=== PATIENT | female | born 1970 | race Two or more races ===

== ENCOUNTER → 2022-04-16 07:29 | Outpatient (BNVA) | payer SELFPAY | PROVIDERS: Visit Provider Physician Assistant Medical | DX: Z02.79 Encounter for issue of other medical certificate (principal) ==

== ENCOUNTER 2023-10-01 13:43 | Outpatient (REF) | payer OTHER, SELFPAY ==
[2023-10-01 17:57] LABS: Appearance Urine Clear; Color Urine Yellow; Glucose Urine UA Negative (Negative); Leukocyte Esterase Urine Negative (Negative); Nitrite Urine Negative (Negative); PH 6.5 (5.0-9.0); Urine Blood Negative (Negative); Urine Ketones Negative (Negative); Urine Protein Negative (Neg-Trace)
== END 2023-10-01 13:44 | disposition home or self-care (01) ==
LOC: HO.CHCLNP 13:43
PROVIDERS: Visit Provider Internal Medicine
DX: R31.1 Benign essential microscopic hematuria (principal)
CPT/HCPCS: 81003

== ENCOUNTER → 2024-04-03 13:15 | Outpatient (BNVA) | payer SELFPAY | PROVIDERS: Visit Provider Physician Assistant Medical | DX: Z02.79 Encounter for issue of other medical certificate (principal) ==

== ENCOUNTER 2025-01-24 08:19 | Outpatient (REF) | payer SELFPAY ==
[2025-01-24 14:34] LABS: Estimated Average Glucose 111 mg/dL; Hemoglobin A1C 117.9493 umol/L; Hemoglobin A1c % 5.5 % (<6.0); Total Hemoglobin (HGBA1C) 3258.2501 umol/L
[2025-01-24 14:56] LABS: Anion Gap 11 (12-20); Blood Urea Nitrogen 9 mg/dL (9-16); Calcium 9.1 mg/dL (8.4-10.2); Carbon Dioxide 24 mmol/L (22-29); Chloride 106 mmol/L (96-108); Estimated Glomerular Filt Rate > 60; Glucose Random 85 mg/dL (60-115); Iron 113 mcg/dL (30-160); Percent Iron Saturation 32 % (15-50); Potassium 3.9 mmol/L (3.3-5.1); Sodium 137 mmol/L (135-145); Total Iron Binding Capacity 353 mcg/dL (228-428); Unsaturated Iron Binding 240 ug/dL
[2025-01-24 15:13] LABS: Ferritin 10 ng/mL (10-250); TSH reflex Free T4 3.06 uIU/mL (0.32-4.0)
== END 2025-01-24 08:20 | disposition home or self-care (01) ==
LOC: HO.CHCLDS 08:19
PROVIDERS: Visit Provider Internal Medicine
DX: R06.83 Snoring (principal); G47.19 Other hypersomnia; G25.81 Restless legs syndrome; Z13.1 Encounter for screening for diabetes mellitus
CPT/HCPCS: 36415; 80048; 82728; 83036; 83540; 84443

== ENCOUNTER → 2025-02-15 20:30 | Outpatient (REF) | payer OTHER, SELFPAY | LOC: HO.SL 20:30 | PROVIDERS: PCP Internal Medicine; Visit Provider Internal Medicine | DX: Z13.89 Encounter for screening for other disorder (principal) ==